=== PATIENT | female | born 1960 | race Caucasian/White ===

== ENCOUNTER 2017-04-05 07:45 | Emergency (ER) | payer OTHER ==
[2017-04-05 08:01] LABS: BASOPHIL 0.3 % (0-2); EOSINOPHIL 0.7 % (0-5); HCT 46.2 % (37.0-47.0); HGB 15.9 g/dl (12.5-16.0); MCH 30.9 pg (25.0-31.0); MCHC 34.4 g/dL (32.0-36.0); MCV 89.7 fL (78.0-100.0); MONOCYTE 7.9 % (0-12); MPV 11.1 fL (6.0-9.5); NEUTROPHIL 58.1 % (41-80); PLT 324 K/uL (150-400); RBC 5.15 M/uL (4.20-5.40); RDW 13.6 % (11.5-14.0); WBC 10.1 K/uL (4.0-10.5)
[2017-04-05 08:13] LABS: BILIRUBIN NEGATIVE (NEGATIVE); BLOOD 3+ Ery/uL (NEGATIVE); COLOR YELLOW (YELLOW); GLUCOSE (U) NORMAL (NORMAL); KETONE (U) NEGATIVE (NEGATIVE); LEUKOCYTES NEGATIVE Leu/uL (NEGATIVE); NITRITE NEGATIVE (NEGATIVE); PROTEIN TRACE (LOW) mg/dL (NEGATIVE); SPECIFIC GRAVITY >=1.030 (1.001-1.030)
[2017-04-05 08:14] LABS: CLARITY HAZY (CLEAR)
[2017-04-05 08:15] LABS: BACTERIA TRACE; MUCOUS TRACE
[2017-04-05 08:21] LABS: ALBUMIN 4.5 g/dL (3.5-5.0); BILIRUBIN - TOTAL 0.6 mg/dL (0.1-1.0); CREATININE 0.7 mg/dL (0.5-1.0); GLOBULIN (CALCULATION) 2.8 g/dL (2.2-4.2); PHOSPHORUS 1.9 mg/dL (2.7-4.5); POTASSIUM 3.3 mmol/L (3.5-5.1); TOTAL PROTEIN 7.3 g/dL (6.4-8.3)
== END 2017-04-05 10:26 | disposition home or self-care (01) ==
LOC: FER 07:45
PROVIDERS: Emergency Medicine
DX: N13.2 Hydronephrosis with renal and ureteral calculous obstruction (principal); I44.0 Atrioventricular block, first degree; Z87.442 Personal history of urinary calculi
CPT/HCPCS: 36415; 80053; 81001; 84100; 85025; 87088; C9113; J1885; J2270; J2405

== ENCOUNTER 2021-04-25 14:27 | Emergency (ER) | payer OTHER ==
[2021-04-25 15:37] LABS: BASOPHIL 0.3 % (0-2); EOSINOPHIL 2.7 % (0-5); HCT 42.1 % (37.0-47.0); HGB 14.1 g/dl (12.5-16.0); LYMPHOCYTE 10.2 % (15-48); MCH 30.4 pg (25.0-31.0); MCHC 33.5 g/dL (32.0-36.0); MCV 90.7 fL (78.0-100.0); MONOCYTE 9.3 % (0-12); NEUTROPHIL 76.6 % (41-80); NRBC 0; PLT 219 K/uL (150-400); RBC 4.64 M/uL (4.20-5.40); RDW 13.5 % (11.5-14.0); WBC 6.7 K/uL (4.0-10.5)
[2021-04-25 15:56] LABS: ALBUMIN 3.4 g/dL (3.4-5.0); BILIRUBIN - TOTAL 0.4 mg/dL (0.2-1.0); BUN/CREAT RATIO (CALC) 15.4 RATIO; CREATININE 1.23 mg/dL (0.51-0.95); GLOBULIN (CALCULATION) 3.9 g/dL; POTASSIUM 4.7 mmol/L (3.5-5.1); TOTAL PROTEIN 7.3 g/dL (6.4-8.2)
[2021-04-25 16:08] LABS: LACTIC ACID 1.1 mmol/L (0.4-1.9)
[2021-04-25] MEDS ORDERED: OMEPRAZOLE40 MG PO (17:26)
== END 2021-04-25 18:10 | disposition home or self-care (01) ==
LOC: FER 14:27
PROVIDERS: Emergency Medicine
DX: K29.70 Gastritis, unspecified, without bleeding (principal); Z93.3 Colostomy status; Z85.048 Personal history of other malignant neoplasm of rectum, rectosigmoid junction, and anus
CPT/HCPCS: 36415; 71046; 80053; 83605; 83690; 85025; 87040; J2270; J2405; J7030

== ENCOUNTER 2022-02-16 10:53 | Emergency (ER) | payer OTHER ==
[~2022-02-16 10:53] MED LIST: OMEPRAZOLE40 MG PO
[2022-02-16] MEDS ORDERED: AMOX TR-K CLV1 EAC4 PO (12:41)
== END 2022-02-16 13:00 | disposition home or self-care (01) ==
LOC: FER 10:53
DX: R22.41 Localized swelling, mass and lump, right lower limb (principal); F17.200 Nicotine dependence, unspecified, uncomplicated
CPT/HCPCS: 93971